=== PATIENT | female | born 2000 | race Hispanic/Latino ===

== ENCOUNTER 2020-11-14 02:15 | Emergency (ER) | payer MEDICAID ==
[~2020-11-14] VITALS: Ht 149.9 cm; Wt 68.0 kg
[2020-11-14 02:26] VITALS: BP 112/59
[2020-11-14 03:01] LABS: APPEARANCE,URINE Clear (CLEAR); BILIRUBIN,URINE Negative (NEGATIVE); COLOR,URINE Yellow (YELLOW); GLUCOSE, URINE (UA) Negative (NEGATIVE); KETONES,URINE Negative (NEGATIVE); LEUKOCYTE ESTERASE ,URINE Negative (NEGATIVE); NITRATE,URINE Negative (NEGATIVE); OCCULT BLOOD,URINE Small (NEGATIVE); PH,URINE 7.5 (5.0-8.0); PROTEIN,URINE Negative (NEGATIVE); UROBILINOGEN,URINE 0.2 mg/dL (0.2-1.0)
[2020-11-14 03:16] LABS: BASOPHILS % (AUTO) 0.7 % (0.0-5.0); EOSINOPHILS % (AUTO) 1.8 % (0.0-8.0); HEMATOCRIT 38.6 % (36-48); LYMPHOCYTES % (AUTO) 29.6 % (21.0-51.0); MEAN CORPUSCULAR HEMOGLOBIN 30.6 pg (27.0-33.0); MEAN CORPUSCULAR HGB CONC 34.2 g/dL (32.0-36.0); MEAN CORPUSCULAR VOLUME 89.6 fL (80-100); MONOCYTES % (AUTO) 4.6 % (3.0-13.0); NEUTROPHILS % (AUTO) 62.7 % (40.0-77.0); PLATELET COUNT (AUTO) 246 K/uL (130-400); RED BLOOD CELL COUNT(AUTO) 4.31 MIL/uL (4.00-5.50); RED CELL DISTRIBUTION WIDTH 12.8 % (11.0-15.5); WHITE BLOOD COUNT (AUTO) 7.2 K/uL (4.8-10.8)
[2020-11-14 03:25] LABS: CREATININE 1.1 mg/dL (0.5-1.5); POTASSIUM 4.3 mmol/L (3.5-5.1)
[2020-11-14 03:30] LABS: BACTERIA,URINE None Seen /HPF (None Seen); RBC,URINE 0-1 /HPF (0-1); SQUAMOUS EPITHELIAL CELL,UR Few /HPF (0-2); WBC,URINE None Seen /HPF (0-1)
[2020-11-14 03:35] LABS: ALBUMIN 3.3 g/dL (3.5-5.0); BILIRUBIN,TOTAL 0.2 mg/dL (0.2-1.0); TOTAL PROTEIN, SERUM 7.4 g/dL (6.0-8.3)
[2020-11-14 03:50] VITALS: BP 115/59
[2020-11-14] MEDS ORDERED: MAGN296S76 PO (04:22)
[2020-11-14] MEDS ORDERED: [UNRECOGNIZED DRUG - CODE] PO (04:22)
[2020-11-14] MEDS ORDERED: DICYCLOMINE 20MG (10MG/ML) AMP IM STA (04:23)
[2020-11-14] MEDS ORDERED: MAGNESIUM CITRATE 296 ML SOLUTION PO ONE (04:30)
[2020-11-14] MEDS ORDERED: ESCI5TAB16 PO (04:30)
[2020-11-14] MEDS ORDERED: OMEP20CA12 PO (04:30)
[2020-11-14] MEDS ORDERED: DICYCLOMINE 20MG (10MG/ML) AMP IM ONE (04:34)
[2020-11-14] MEDS ORDERED: MAGNESIUM CITRATE 296 ML SOLUTION ONE (04:34)
== END 2020-11-14 04:48 | disposition home or self-care (01) ==
LOC: EDH 02:15
DX: K59.00 Constipation, unspecified (principal); E03.9 Hypothyroidism, unspecified; E66.9 Obesity, unspecified; J45.909 Unspecified asthma, uncomplicated; Z68.30 Body mass index [BMI] 30.0-30.9, adult
CPT/HCPCS: 36415; 74018; 80053; 81001; 83690; 84702; 85025; 96372; 99284; J0500

== ENCOUNTER 2020-12-03 09:19 | Emergency (ER) | payer MEDICAID ==
[~2020-12-03] VITALS: Ht 149.9 cm; Wt 71.7 kg
[~2020-12-03 09:19] MED LIST: ESCI5TAB16 PO; MAGN296S76 PO; OMEP20CA12 PO; [UNRECOGNIZED DRUG - CODE] PO
[2020-12-03 11:35] LABS: BASOPHILS % (AUTO) 0.7 % (0.0-5.0); EOSINOPHILS % (AUTO) 1.7 % (0.0-8.0); HEMATOCRIT 41.1 % (36-48); LYMPHOCYTES % (AUTO) 25.2 % (21.0-51.0); MEAN CORPUSCULAR HGB CONC 33.8 g/dL (32.0-36.0); MEAN CORPUSCULAR VOLUME 91.5 fL (80-100); MONOCYTES % (AUTO) 4.8 % (3.0-13.0); PLATELET COUNT (AUTO) 204 K/uL (130-400); RED BLOOD CELL COUNT(AUTO) 4.49 MIL/uL (4.00-5.50); RED CELL DISTRIBUTION WIDTH 13.3 % (11.0-15.5); WHITE BLOOD COUNT (AUTO) 5.4 K/uL (4.8-10.8)
[2020-12-03 11:46] LABS: CREATININE 0.9 mg/dL (0.5-1.5); POTASSIUM 3.8 mmol/L (3.5-5.1)
[2020-12-03 11:51] LABS: APPEARANCE,URINE Clear (CLEAR); BILIRUBIN,URINE Negative (NEGATIVE); COLOR,URINE Yellow (YELLOW); GLUCOSE, URINE (UA) Negative (NEGATIVE); KETONES,URINE Negative (NEGATIVE); LEUKOCYTE ESTERASE ,URINE Negative (NEGATIVE); NITRATE,URINE Negative (NEGATIVE); OCCULT BLOOD,URINE Negative (NEGATIVE); PH,URINE 7.5 (5.0-8.0); PROTEIN,URINE Negative (NEGATIVE); UROBILINOGEN,URINE 0.2 mg/dL (0.2-1.0)
[2020-12-03 11:55] LABS: HCG,QUAL RESULT NEGATIVE (NEGATIVE)
[2020-12-03 11:58] LABS: ALBUMIN 3.5 g/dL (3.5-5.0); BILIRUBIN,TOTAL 0.4 mg/dL (0.2-1.0); MAGNESIUM 2.4 mg/dL (1.80-2.40); THYROID STIMULATING HORMONE 7.46 uIU/mL (0.36-3.74); TOTAL PROTEIN, SERUM 7.3 g/dL (6.0-8.3)
[2020-12-03 12:11] LABS: B-TYPE NATRIURETIC PEPTIDE < 5 pg/mL (0-100)
[2020-12-03 12:39] VITALS: BP 110/61
== END 2020-12-03 13:56 | disposition home or self-care (01) ==
LOC: EDH 09:19
DX: R07.89 Other chest pain (principal); I25.10 Atherosclerotic heart disease of native coronary artery without angina pectoris; E03.9 Hypothyroidism, unspecified; E66.9 Obesity, unspecified; J45.909 Unspecified asthma, uncomplicated; Q90.9 Down syndrome, unspecified; Z68.30 Body mass index [BMI] 30.0-30.9, adult; Z79.899 Other long term (current) drug therapy
CPT/HCPCS: 36415; 71045; 80053; 81003; 81025; 82550; 83690; 83735; 83880; 84443; 84484; 85025; 93005

== ENCOUNTER 2024-05-03 18:55 | Emergency (ER) | payer MEDICAID ==
[~2024-05-03] VITALS: Ht 149.9 cm; Wt 59.6 kg
[~2024-05-03 18:55] MED LIST changes: +MAGN296S73 PO; -MAGN296S76 PO; +[UNRECOGNIZED DRUG - CODE] PO; -[UNRECOGNIZED DRUG - CODE] PO
[2024-05-03 18:56] VITALS: BP 113/6; PULSE 98; RESP 18; TEMP 96.7
[2024-05-03 20:54] LABS: BASOPHILS # (AUTO) 0.05 K/uL (0.00-0.20); BASOPHILS % (AUTO) 0.6 % (0.0-5.0); EOSINOPHILS # (AUTO) 0.09 K/uL (0.00-0.70); EOSINOPHILS % (AUTO) 1.1 % (0.0-8.0); HEMATOCRIT 44.6 % (36-48); IMMATURE GRANULOCYTE ABSOLUTE 0.03 K/uL (0-1); LYMPHOCYTES % (AUTO) 13.2 % (21.0-51.0); MEAN CORPUSCULAR HEMOGLOBIN 31.7 pg (27.0-33.0); MEAN CORPUSCULAR HGB CONC 33.6 g/dL (32.0-36.0); MEAN CORPUSCULAR VOLUME 94.3 fL (79-99); MONOCYTES # (AUTO) 0.3 K/uL (0.1-1.0); MONOCYTES % (AUTO) 3.5 % (3.0-13.0); NEUTROPHILS # (AUTO) 6.4 K/uL (1.8-7.7); NEUTROPHILS % (AUTO) 81.2 % (40.0-77.0); PLATELET COUNT (AUTO) 216 K/uL (130-400); RED BLOOD CELL COUNT(AUTO) 4.73 MIL/uL (4.00-5.50); WHITE BLOOD COUNT (AUTO) 7.9 K/uL (4.8-10.8)
[2024-05-03 21:02] LABS: CREATININE 0.9 mg/dL (0.5-1.0); POTASSIUM 3.6 mmol/L (3.5-5.1)
--- NOTE | 2024-05-03 21:50 | HMCIMG ---
CHEST 1VW HISTORY: Cough COMPARISON: 12/03/2020 FINDINGS: A frontal projection of the chest was obtained. Mild bilateral pulmonary infiltrates are seen may be related to mild pulmonary vascular congestion with possible superimposed pneumonitis. The heart is normal in size. Gastric distention is seen. No evidence of aortic calcification is seen. IMPRESSION: 1. Mild bilateral pulmonary infiltrates are seen may be related to mild pulmonary vascular congestion with possible superimposed pneumonitis.
--- NOTE | 2024-05-04 00:45 | ERN ---
ED Note History of Present Illness Stated Complaint: NO APPETITE, THROAT PAIN Chief Complaint: Other Problems Time Seen by MD: 19:31 Time Seen by Midlevel: 19:31 Dictation: The patient is a 23-year-old female with a history of Down syndrome, hypothyroi dism who presents to the emergency department with mother with complaints of low appetite, onset one month ago. Mother reports that patient has been very picky about what she eats and would only eat protein shakes and soft soups. Reports she has been seen by her doctor and they had checked her thyroid and told her she had hypothyroidism and was placed on medication. Reports patient has lost about33 lb in the last month. Reports sore throat onset today. Denies any nausea, vomiting, fevers, diarrhea patient denies any abdominal pain. Allergies: Coded Allergies: No Known Drug Allergies (Unverified Allergy, Unknown, 11/14/20) Home Meds Active Scripts Psyllium Husk/Sweetleaf (Konsyl Daily Fiber Powder Pkt) 3.5 Gm Powd.pack, 3.5 GM PO BID, #60 PACKET 2 Refills Prov:NELI CAMARENA MD 11/14/20 Magnesium Citrate (Magnesium Citrate) 296 Ml Solution, 296 ML PO TID for constipation, #300 ML 2 Refills Prov:NELI CAMARENA MD 11/14/20 Reported Medications Escitalopram Oxalate (Escitalopram Oxalate) 5 Mg Tablet, 5 MG PO DAILY, TAB 11/14/20 Omeprazole (Omeprazole) 20 Mg Capsule.dr, 20 MG PO DAILY, CAP 11/14/20 Past Medical History Past Medical History: Asthma, Hypothyroid, Other Additional Past Medical Hx: DOWN SYNDROME, THYROID Surgical History: Tonsillectomy Surgical History Other: BMT Family History: HTN Social History: Negative, Lives with family RN Note Reviewed/Agreed w/PFSH: Yes Review of System Dictation Constitutional: Negative for fever,chills, and weight loss Eyes: Negative for injury, pain,redness, and discharge ENT: Negative for injury,pain or swelling positive for sore throat Cardiovascular: Negative for chest pain, palpitations, and edema Respiratory: Negative for shortness of breath, cough, and wheezing, Abdomen/GI: Negative for abdominal pain, nausea, vomiting, diarrhea, and constipation Back: Negative for injury and pain : Negative for injury, bleeding and discharge MS/Extremity: Negative for injury and deformity Skin: Negative for rash, and discoloration Neuro: Negative for headache, weakness, numbness, tingling, and seizure Psych: Negative for suicide ideation, homicidal ideation, and hallucinations Initial Vital Sign VS Vital Signs Date Time Temp Pulse Resp B/P (MAP) Pulse Ox O2 Delivery O2 Flow Rate FiO2 05/03/24 18:56 96.6 98 18 113/6 100 Room Air Physical Exam Dictation Vital Signs reviewed General Appearance: Alert, oriented x 1, no acute distress, well developed, nourished. Head and Face: non-traumatic. Eyes: PERRL, pink conjunctivas, eyelid no trauma, anterior chamber with arcus senilis. Ears: Pinnas intact and no signs of trauma or erythema ear canals clear and no discharge TM no erythema Nose: No discharge, no bleeding. Oropharynx: Mouth normal, tongue pink. pharynx clear,no erythema, tonsils no exudates, no abscesses noted, mucous membrane moist Neck: Supple, non-tender, no thyromegaly, no masses, no JVD, no bruits Breast:Deferred Chest:No tenderness, no crepitus, no paradoxical movement, no retractions Lungs:Clear, well-ventilated, symmetric, no rales, no wheezing, no rhonchi, no stridor, good breath sounds bilaterally Heart: Regular rate, regular rhythm, no murmur, no gallops Vascular: no peripheral edema, Abdomen: Soft, positive bowel sounds, nondistended, no guarding, nontender, no rebound, no masses no hepatomegaly, no splenomegaly, no Perez's sign, no hernias. Rectal: Deferred Genital: Deferred Neurological: Normal speech, motor function intact, sensory function intact Musculoskeletal: Neck nontender, full range of motion, back nontender, full r dara of motion, Extremities: nontender, full range of motion Skin: Color pink, dry, no turgor, no rash, no lacerations, no abrasions, no contusions. Lymphatic: Deferred Results (Laboratory/Radiology) Laboratory/Radiology Laboratory Tests Test 05/03/24 20:43 White Blood Count 7.9 K/uL (4.8-10.8) Red Blood Count 4.73 MIL/uL (4.00-5.50) Hemoglobin 15.0 g/dL (12.0-16.0) Hematocrit 44.6 % (36-48) Mean Corpuscular Volume 94.3 fL (79-99) Mean Corpuscular Hemoglobin 31.7 pg (27.0-33.0) Mean Corpuscular Hemoglobin Concent 33.6 g/dL (32.0-36.0) Red Cell Distribution Width 14.0 % (11.0-15.5) Platelet Count 216 K/uL (130-400) Mean Platelet Volume 10.4 fL (7.5-10.5) Immature Granulocyte % (Auto) 0.4 % (0-1) Neutrophils (%) (Auto) 81.2 % (40.0-77.0) H Lymphocytes (%) (Auto) 13.2 % (21.0-51.0) L Monocytes (%) (Auto) 3.5 % (3.0-13.0) Eosinophils (%) (Auto) 1.1 % (0.0-8.0) Basophils (%) (Auto) 0.6 % (0.0-5.0) Neutrophils # (Auto) 6.4 K/uL (1.8-7.7) Lymphocytes # (Auto) 1.0 K/uL (1.0-4.8) Monocytes # (Auto) 0.3 K/uL (0.1-1.0) Eosinophils # (Auto) 0.09 K/uL (0.00-0.70) Basophils # (Auto) 0.05 K/uL (0.00-0.20) Absolute Immature Granulocyte (auto 0.03 K/uL (0-1) Nucleated Red Blood Cells 0.0 % (0.0-0.19) Sodium Level 138 mmol/L (136-145) Potassium Level 3.6 mmol/L (3.5-5.1) Chloride Level 103 mmol/L (101-111) Carbon Dioxide Level 31 mmol/L (21-32) Blood Urea Nitrogen 7 mg/dL (7-18) Creatinine 0.9 mg/dL (0.5-1.0) Glomerular Filtration Rate Calc 92 mL/min (>90) Random Glucose 97 mg/dL (70-105) Total Calcium 8.9 mg/dL (8.5-10.1) Lipase 20 U/L (16-77) Serum Test, Qualitative NEGATIVE (NEGATIVE) REASON: cough ORDERING PHYSICIAN: DEANA TREJO PROCEDURE: CXR1VW - CHEST 1VW CHEST 1VW HISTORY: Cough COMPARISON: 12/03/2020 FINDINGS: A frontal projection of the chest was obtained. Mild bilateral pulmonary infiltrates are seen may be related to mild pulmonary vascular congestion with possible superimposed pneumonitis. The heart is normal in size. Gastric distention is seen. No evidence of aortic calcification is seen. IMPRESSION: 1. Mild bilateral pulmonary infiltrates are seen may be related to mild pulmonary vascular congestion with possible superimposed pneumonitis. Labs Reviewed?: Yes ED Course ED Course Orders Procedure Category Date Status Time Cbc With Differential LAB 05/03/24 Complete 20:31 Urinalysis Profile LAB 05/03/24 Logged 20:31 Lipase LAB 05/03/24 Complete 20:31 Basic Metabolic Panel LAB 05/03/24 Complete 20:31 Testing, LAB 05/03/24 Complete Serum Hcg 20:31 Rapid (Group A Strep) LAB 05/03/24 Logged 20:31 Influenza Type A & B, LAB 05/03/24 Logged Rapid 20:31 Chest 1vw RAD 05/03/24 Resulted 20:31 Vital Signs Date Time Temp Pulse Resp B/P (MAP) Pulse Ox O2 Delivery O2 Flow Rate FiO2 05/03/24 18:56 96.6 98 18 113/6 100 Room Air Medical Decision Making MDM The patient is a 23-year-old female with a history of Down syndrome, hypothyroidism who presents to the emergency department with mother with compla ints of low appetite, onset one month ago. Mother reports that patient has been very picky about what she eats and would only eat protein shakes and soft soups. Reports she has been seen by her doctor and they had checked her thyroid and told her she had hypothyroidism and was placed on medication. Patient also being referred to Gastroenterology for this problem but is pending appointment. Reports patient has lost about33 lb in the last month. Reports sore throat onset today. Denies any nausea, vomiting, fevers, diarrhea patient denies any abdominal pain. Differential diagnosis: Strep throat, upper respiratory infection, dehydration, electrolyte imbalance Patient's mother reported that she wanted to leave ER and follow up with her primary doctor in the morning for swabs. And rest of the results. Informed mother that we were pending a strep swab and urinalysis and advised against leaving without having full results. Mother reports she did not want away anymore Risks and benefits discussed with patient mother eloped from ER. DX & DISP Disposition: AMA Departure Condition: Stable Referrals: JUN EDGE (PCP) I have reviewed the case, and I agree with, Diagnosis and Plan DEANA TREJO May 04, 2024 00:45
--- NOTE | 2024-05-04 00:50 | NUR ---
PATIENT CALLED FOR CARE AT THIS TIME, NO ANSWER./TIFFANIE
--- NOTE | 2024-05-04 01:00 | NUR ---
DEANA RIZVI INFORMED THAT PATIENT VOICED TO HER THAT SHE IS LEAVING AND WILL FOLLOW UP WITH HER PRIMARY IN THE MORNING./TIFFANIE
== END 2024-05-04 02:16 | disposition left against medical advice (07) ==
LOC: EDH 18:55
DX: R63.0 Anorexia (principal); J02.9 Acute pharyngitis, unspecified; E03.9 Hypothyroidism, unspecified; J45.909 Unspecified asthma, uncomplicated; Q90.9 Down syndrome, unspecified; Z79.899 Other long term (current) drug therapy; Z90.89 Acquired absence of other organs; Z94.81 Bone marrow transplant status
CPT/HCPCS: 36415; 71045; 80048; 83690; 84703; 85025; 99284

== ENCOUNTER → 2024-07-15 | Outpatient (CLI) | payer MEDICAID ==
--- NOTE | 2024-07-15 14:50 | NUR ---
MBSS COMPLETED (OUTPATIENT). Aspiration before the swallow with mixed textures followed by immediate body movements and head turning. Recommend pureed solid, thin liquids and pills crushed with pureed as tolerated. As per mother, patient with Down Syndrome. She reports a recent change during oral intake. Patient brings head down to left side and will take awhile to initiate the swallow. She will remain in that position a few seconds post swallow before raising head back up to accept new bite/sip. As per mother, one medication was increased in dose and no new medications have been prescribed. Mother will consult with MD on medication side effects. Mother also reports patient has been diagnosed with thyroid issues and that may be a contributing factor. Pt completed imaging exams on thyroid with pending results. RECOMMEND NEURO CONSULT TO FURTHER EVALUATE RECENT CHANGE IN MENTATION DURING ORAL INTAKE mildly affecting swallowing function. Compensatory strategies: 1. sit upright during oral intake 2. small bites/sips 3. slow oral intake 4. NO MIXED TEXTURES 5. extra dry swallows 6. minimize distractions during oral intake DIAGNOSTIC FINDINGS: Pt presented with mild oropharyngeal dysphagia characterized by decreased oral motor strength, ROM and coordination; decreased tongue base retraction; decreased hyo-laryngeal elevation/excursion and delayed pharyngeal response trigger evidenced by increased bolus time in oral cavity (patient required max concentration with minimal distractions to initiate the swallow and after the swallow she remained with her eyes closed with head down for a few seconds before lifting head up to accept new trial); decreased mandibular rotary motion during mastication (patient had to spit out fibrous part of fruit); severe tongue pumping; occasional premature spillage to valleculae with spillover to pyriform sinuses; residue post swallow in base of tongue, valleculae and pyriform sinuses cleared with extra dry swallows; resulting in aspiration before the swallow with mixed textures with body gestures and movement response. WOODWORKING BELT SANDER reviewed results and recommendations with patient and mother Luisana present at time of eval. WOODWORKING BELT SANDER educated patient/family on risks and consequences of aspiration. Speech therapy not warranted. All questions answered. Addendum: 07/15/[address] AMY WOODWARD Amended: Links added.
--- NOTE | 2024-07-15 16:40 | HMCIMG ---
MODIFIED BARIUM SWALLOW W CINE REASON: Dysphagia, unspecified, Feeding difficulties. COMPARISON: None TECHNIQUE: Modified barium swallow study was performed with referring speech therapist. FINDINGS: Please see procedure for by referring speech therapist. IMPRESSION: Modified barium swallow study.
== END | disposition home or self-care (01) ==
LOC: RAH 13:55
PROVIDERS: ATTEND Internal Medicine Gastroenterology
DX: R13.10 Dysphagia, unspecified (principal); R63.30 Feeding difficulties, unspecified
CPT/HCPCS: 74230; 92611

== ENCOUNTER 2024-08-31 19:21 | Emergency (ER) | payer MEDICAID ==
[~2024-08-31] VITALS: Ht 124.5 cm; Wt 49.4 kg
[2024-08-31] MEDS: LACTATED RINGERS 1000ML IV STA ×2 (19:43→23:50)
--- NOTE | 2024-08-31 19:45 | NUR ---
PATIENT RECIEVED APPROX 500 CC OF NS PRIOR TO ARRIVAL WITH [facility]./TIFFANIE
[2024-08-31 20:06] LABS: IMMATURE GRANULOCYTE ABSOLUTE 0.02 K/uL (0-1); NUCLEATED RED BLOOD CELLS 0.0 % (0.0-0.19); PLATELET COUNT (AUTO) 169 K/uL (130-400); RED BLOOD CELL COUNT(AUTO) 4.22 MIL/uL (4.00-5.50); RED CELL DISTRIBUTION WIDTH 13.7 % (11.0-15.5); WHITE BLOOD COUNT (AUTO) 5.6 K/uL (4.8-10.8)
[2024-08-31 20:15] LABS: CREATININE 1.0 mg/dL (0.5-1.0); GLOMERULAR FILTR. RATE CALC 81.0 mL/min (>90); GLUCOSE,RANDOM 101.0 mg/dL (70-105); SODIUM SERUM 149.0 mmol/L (136-145); UREA NITROGEN, BLOOD 14.0 mg/dL (7-18)
--- NOTE | 2024-08-31 20:22 | ERN ---
General Chief Complaint: Syncope Stated Complaint: SYNCOPE Time Seen by MD: 19:22 History of Present Illness Initial Comments Patient is a 23-year-old female with down syndrome who was shopping with her mother this morning when she dropped her protein shake and slumped over. Her mother caught her so that the patient did not hit the ground. Brought her here for further evaluation. While I was examining the patient she tilted her head to the left and her gaze deviated to the left and she did not respond to any of my questions or gentle prodding. I moved her head to the right and it just rested there with the no resistance and the patient again did not respond. After a brief moment the patient did seem to perk up and answer my questions and look at me when I talked to her. Patient's skin is pale but with a venous spidering. Patient's 1st set of vital signs showed a systolic blood pressure of 89. Timing/Duration: 1 hour Allergies: Coded Allergies: No Known Drug Allergies (Unverified Allergy, Unknown, 11/14/20) Home Meds Active Scripts Psyllium Husk/Sweetleaf (Konsyl Daily Fiber Powder Pkt) 3.5 Gm Powd.pack, 3.5 GM PO BID, #60 PACKET 2 Refills Prov:NELI CAMARENA MD 11/14/20 Magnesium Citrate (Magnesium Citrate) 296 Ml Solution, 296 ML PO TID for constipation, #300 ML 2 Refills Prov:NELI CAMARENA MD 11/14/20 Reported Medications Escitalopram Oxalate (Escitalopram Oxalate) 5 Mg Tablet, 5 MG PO DAILY, TAB 11/14/20 Omeprazole (Omeprazole) 20 Mg Capsule.dr, 20 MG PO DAILY, CAP 11/14/20 Past Medical History Past Medical History: Asthma, Hypothyroid, Other Medical History Other: DOWN SYNDROME, THYROID Past Surgical History: Tonsillectomy Surgical History Other: BMT Family History Family History: HTN Social History Social History: Negative, Lives with family ROS Dictation Unable to obtain a review of systems from the patient. Mother provided some information. Patient is afebrile no nausea no vomiting no diarrhea no shortness of breath no chest pain. Mainly patient is upset because she spilled her protein drink. Physical Exam General Appearance: (+) mild distress Orientation: (+) alert Eye: bilateral eye normal inspection, bilateral eye PERRL, bilateral eye EOMI Ear, Nose, Throat: (+) hearing grossly normal Neck: (+) normal inspection, (+) supple, (+) full range of motion Respiratory: (+) chest non-tender, (+) lungs clear Heart: (+) regular, (+) no gallop Vascular: (+) no edema Vascular Comment We will pulses were absent in all four extremities. Gastrointestinal: (+) soft Results Laboratory and Microbiology Lab and Micro Result Laboratory Tests Test 08/31/24 19:43 08/31/24 23:05 White Blood Count 5.6 K/uL (4.8-10.8) Red Blood Count 4.22 MIL/uL (4.00-5.50) Hemoglobin 13.3 g/dL (12.0-16.0) Hematocrit 39.8 % (36-48) Mean Corpuscular Volume 94.3 fL (79-99) Mean Corpuscular Hemoglobin 31.5 pg (27.0-33.0) Mean Corpuscular Hemoglobin Concent 33.4 g/dL (32.0-36.0) Red Cell Distribution Width 13.7 % (11.0-15.5) Platelet Count 169 K/uL (130-400) Mean Platelet Volume 11.0 fL (7.5-10.5) H Immature Granulocyte % (Auto) 0.4 % (0-1) Neutrophils (%) (Auto) 81.4 % (40.0-77.0) H Lymphocytes (%) (Auto) 14.0 % (21.0-51.0) L Monocytes (%) (Auto) 3.0 % (3.0-13.0) Eosinophils (%) (Auto) 0.7 % (0.0-8.0) Basophils (%) (Auto) 0.5 % (0.0-5.0) Neutrophils # (Auto) 4.6 K/uL (1.8-7.7) Lymphocytes # (Auto) 0.8 K/uL (1.0-4.8) L Monocytes # (Auto) 0.2 K/uL (0.1-1.0) Eosinophils # (Auto) 0.04 K/uL (0.00-0.70) Basophils # (Auto) 0.03 K/uL (0.00-0.20) Absolute Immature Granulocyte (auto 0.02 K/uL (0-1) Nucleated Red Blood Cells 0.0 % (0.0-0.19) Sodium Level 149 mmol/L (136-145) H Potassium Level 3.5 mmol/L (3.5-5.1) Chloride Level 111 mmol/L (101-111) Carbon Dioxide Level 22 mmol/L (21-32) Blood Urea Nitrogen 14 mg/dL (7-18) Creatinine 1.0 mg/dL (0.5-1.0) Glomerular Filtration Rate Calc 81 mL/min (>90) Random Glucose 101 mg/dL (70-105) Total Calcium 8.3 mg/dL (8.5-10.1) L Urine Color LIGHT-YELLOW (YELLOW) Urine Appearance CLEAR (CLEAR) Urine pH 6.0 (5.0-8.0) Urine Specific [place] 1.023 (1.001-1.031) Urine Protein 10 mg/dL (NEGATIVE) H Urine Glucose (UA) NEGATIVE mg/dL (NEGATIVE) Urine Ketones 150 mg/dL (NEGATIVE) H Urine Occult Blood NEGATIVE (NEGATIVE) Urine Nitrate NEGATIVE (NEGATIVE) Urine Bilirubin NEGATIVE mg/dL (NEGATIVE) Urine Urobilinogen 3 mg/dL (0.2-1.0) H Urine Leukocyte Esterase 25 Judy/uL (NEGATIVE) H Urine RBC 0-1 /HPF (0-1) Urine WBC 2-5 /HPF (0-1) H Urine Squamous Epithelial Cells FEW /HPF (0-2) Urine Bacteria FEW /HPF (None Seen) MDM Given the skin color changes and the lack of pulses and a assuming the patient is dehydrated I will start with a simple labs as well as a urine analysis and give her 2 L of food. Laboratory analysis comes back showing a normal white count but left shift. Chemistry analysis shows a mild hypernatremia but a normal chloride normal BUN normal creatinine. Urinalysis comes back with mild esterase activity no glucose positive ketones 150. While patient receiving her 3 L of fluid her blood pressure finally started to rise up to normal level and her blood pressure became normal. Once her 3 L is complete she can go home. ED Course Orders Procedure Category Date Status Time 12 Lead Ekg Tracing- EKG 08/31/24 Logged Technical 19:31 Basic Metabolic Panel LAB 08/31/24 Complete 19:31 Cbc With Differential LAB 08/31/24 Complete 19:31 Urinalysis Profile LAB 08/31/24 Complete 19:31 Lactated Ringers PHA 08/31/24 Complete 1000ml (Lactated 19:31 Ct Head/Brain W/O CT 08/31/24 Resulted Contrast 21:45 Ct Abdomen/Pelvis W/O CT 08/31/24 Taken Contrast 21:45 Lactated Ringers PHA 08/31/24 Complete 1000ml (Lactated 23:43 Current Medications Medications (Trade) Dose Ordered Sig/Chandni Route PRN Reason Start Time Stop Time Status Last Admin Dose Admin Lactated Ringer's (Lactated Ringers 1000ml) 1,000 ml BOLUS STAT IV 08/31/24 19:31 08/31/24 19:34 DC 08/31/24 19:43 Lactated Ringer's (Lactated Ringers 1000ml) 1,000 ml BOLUS STAT IV 08/31/24 23:43 08/31/24 23:45 DC 08/31/24 23:50 Vital Signs Date Time Temp Pulse Resp B/P (MAP) Pulse Ox O2 Delivery O2 Flow Rate FiO2 08/31/24 23:17 73 17 96/59 99 Room Air* 0 08/31/24 22:32 81 17 94/60 99 Room Air* 0 08/31/24 21:38 97.3 81 17 98/62 99 Room Air* 0 08/31/24 21:13 79 17 91/55 99 Room Air* 0 08/31/24 20:32 82 17 92/57 99 Room Air* 0 08/31/24 20:20 87 17 86/65 99 Room Air* 0 08/31/24 20:11 85 18 79/44 99 Room Air* 0 08/31/24 20:01 90 88/42 Room Air* 0 08/31/24 19:58 84 74/33 Room Air* 0 08/31/24 19:45 82 18 81/47 99 Room Air* 0 08/31/24 19:22 93 16 72/54 98 Room Air 0 DX & DISP Disposition: Discharge Departure Impression: Primary Impression: Dehydration determined by examination Additional Impression: Dehydration Condition: Stable Additional Instructions: All of the laboratory analysis confirms that araceli almanzar was severely dehydrated when she came to the emergency room and that is mainly why she was lightheaded. Her blood pressure is now normal with a her 3 L of fluid. If she becomes lightheaded again please bring her back to the emergency room. You estimate constipation a good laxative that is gentle is called BoazLY it is a powder that you can put into a drink and have her take it every night before she goes to bed. Regarding her needing to look to the left when she eats I recommend you keep the appointment that is already scheduled with her neurologist. Referrals: JUN EDGE (PCP) SUNDEEP KIM MD Aug 31, 2024 20:22
--- NOTE | 2024-08-31 21:34 | NUR ---
DR. KIM CONNECTED PATIENT TO NS FLUIDS THAT ARE AT BEDSIDE FROM EMS AT THIS TIME./TIFFANIE
--- NOTE | 2024-08-31 23:08 | NUR ---
PT AMBULATED TO BATHROOM WITH ASSISTANCE, PT DID NOT VOICE ANY DIZZINESS AT THIS TIME. URINE SAMPLE OBTAINED./TIFFANIE
[2024-08-31 23:12] LABS: ADD UA MICROSCOPIC YES; APPEARANCE,URINE CLEAR (CLEAR); GLUCOSE, URINE (UA) NEGATIVE (NEGATIVE); LEUKOCYTE ESTERASE ,URINE 25 Leu/uL (NEGATIVE); NITRATE,URINE NEGATIVE (NEGATIVE); OCCULT BLOOD,URINE NEGATIVE (NEGATIVE)
[2024-08-31 23:15] LABS: SQUAMOUS EPITHELIAL CELL,UR FEW /HPF (0-2)
--- NOTE | 2024-08-31 23:15 | HMCIMG ---
EXAM: Non-contrast CT examination of the Brain CLINICAL HISTORY: Weakness. TECHNIQUE: Thin collimated axial CT images of the brain were obtained, with sagittal and coronal reformatted images also submitted. CT scan done according to ALARA (As Low as Reasonably Achievable). CONTRAST USED: None. COMPARISON: None. FINDINGS: No acute intracranial abnormality is present. No acute cortical infarction, hemorrhage, mass, or mass effect. Prominent CSF space in the left cerebellopontine angle concerning an arachnoid cyst. No hydrocephalus or abnormal extra-axial fluid collections. The posterior fossa is unremarkable. The skull base and calvarium are intact. The included portions of the paranasal sinuses and mastoid air cells are clear. IMPRESSION: No acute intracranial abnormality is present. Prominent CSF space in the left cerebellopontine angle concerning an arachnoid cyst. Further evaluation with MRI of the brain is suggested. /[place]
--- NOTE | 2024-08-31 23:30 | NUR ---
PT TOLERATING SOLID FOOD AND LIQUIDS, NO NAUSEA OR VOMITING. PER MOTHER PATIENT IS LOOKING BACK TO BASE LINE./TIFFANIE
[2024-09-01 00:24] VITALS: BP 100/59; PULSE 70; RESP 17; TEMP 98.1; O2SAT 99
--- NOTE | 2024-09-01 00:26 | NUR ---
IV FLUIDS CURRENTLY INFUSING, ONCE COMPLETED PATIENT WILL BE READY FOR DISCHARGE PER ED MD./TIFFANIE
--- NOTE | 2024-09-01 06:40 | EKG ---
[facility] Test Date: 2024-08-31 Test Time: 19:34:55 Pat Name: PATRICIA POTTS Department: [facility] Room: Gender: F [employer] Set Up Operator: [id number] : [id number] Requested By: SUNDEEP KIM Order Number: [id number] Reading MD: Shruti Hardy Measurements Intervals [place] Rate: 82 P: 23 WI: 116 QRS: 30 QRSD: 68 T: -89 QT: 362 QTc: 424 Interpretive Statements Sinus rhythm Compared to ECG 12/03/2020 09:21:04 No significant changes Electronically Signed On 09-02-2024 14:12:44 CDT by Shruti Hardy Please click the below link to view image of tracing.
== END 2024-09-01 01:17 | disposition home or self-care (01) ==
LOC: EDH 19:21
DX: E86.0 Dehydration (principal); J45.909 Unspecified asthma, uncomplicated; E03.9 Hypothyroidism, unspecified; Z79.899 Other long term (current) drug therapy; Z90.89 Acquired absence of other organs; Z94.81 Bone marrow transplant status
CPT/HCPCS: 99284; 70450; 96360; 96361; 80048; 85025; 81001; 36415; 74176; 93005; J7120 ×2

== ENCOUNTER 2024-09-08 23:04 | Emergency (ER) | payer MEDICAID ==
[~2024-09-08] VITALS: Ht 124.5 cm; Wt 46.0 kg
[2024-09-08 23:31] LABS: IMMATURE GRANULOCYTE ABSOLUTE 0.03 K/uL (0-1); NUCLEATED RED BLOOD CELLS 0.0 % (0.0-0.19); PLATELET COUNT (AUTO) 181 K/uL (130-400); RED BLOOD CELL COUNT(AUTO) 4.06 MIL/uL (4.00-5.50); RED CELL DISTRIBUTION WIDTH 14.2 % (11.0-15.5); WHITE BLOOD COUNT (AUTO) 5.1 K/uL (4.8-10.8)
[2024-09-08 23:42] LABS: CREATININE 0.9 mg/dL (0.5-1.0); GLOMERULAR FILTR. RATE CALC 92.0 mL/min (>90); GLUCOSE,RANDOM 82.0 mg/dL (70-105); SODIUM SERUM 142.0 mmol/L (136-145); UREA NITROGEN, BLOOD 11.0 mg/dL (7-18)
--- NOTE | 2024-09-09 00:57 | HMCIMG ---
EXAM: CR Abdomen, 1 view. CLINICAL HISTORY: Constipation. COMPARISON: CT abdomen and pelvis dated 08/31/2024. FINDINGS: Nonobstructed nonspecific bowel gas pattern. A component of moderate constipation is present in the colon. Questionable retained GI contrast in the descending colon, sigmoid colon, and rectum. No free air is evident. No abnormal calcification. No aggressive appearing osseous lesion. IMPRESSION: No acute process. A component of moderate constipation is present in the colon. Questionable retained GI contrast in the descending colon, sigmoid colon, and rectum. No gross interval changes compared with the prior CT dated 08/31/2024. /[place]
[2024-09-09 01:35] LABS: APPEARANCE,URINE CLOUDY (CLEAR); GLUCOSE, URINE (UA) NEGATIVE (NEGATIVE); LEUKOCYTE ESTERASE ,URINE 250 Leu/uL (NEGATIVE); NITRATE,URINE NEGATIVE (NEGATIVE); OCCULT BLOOD,URINE NEGATIVE (NEGATIVE)
[2024-09-09 01:43] LABS: SQUAMOUS EPITHELIAL CELL,UR MOD /HPF (0-2)
[2024-09-09] MEDS ORDERED: CEPH500T PO (02:02)
--- NOTE | 2024-09-09 02:02 | ERN ---
General Chief Complaint: Dehydration Stated Complaint: DEHYDRATION Time Seen by : 23:08 Time Seen by Midlevel: 23:08 Source: patient History of Present Illness Initial Comments 23-year-old female who presents to the emergency department with mother by EMS. Initially mother stated patient was having seizure-like activity however stated that it appeared like patient was choking patient was alert, and awake during the event. The patient was eating scrambled eggs when this occurred. Mother told EMS that patient has not been eating or drinking for the past few weeks. Mother states last bowel movement was two days ago. During conversation with mother she states that patient has been eating and drinking but takes a long time. Patient normally can not be disturbed or distracted during eating, which mother did today and thinks that led to the possible choking that resolved. PMHx down syndrome, gastritis Allergies: Coded Allergies: No Known Drug Allergies (Unverified Allergy, Unknown, 11/14/20) Home Meds Active Scripts Polyethylene Glycol 3350 (Miralax) 17 Gram Powd.pack, 17 GM PO DAILY for constipation, #7 PACKET 0 Refills Prov:JEFF BRINK 09/09/24 Cefdinir (Cefdinir) 250 Mg/5 Ml Susp.recon, 6.4 ML PO BID for 7 Days, #90 ML 0 Refills Prov:JEFF BRINK 09/09/24 Psyllium Husk/Sweetleaf (Konsyl Daily Fiber Powder Pkt) 3.5 Gm Powd.pack, 3.5 GM PO BID, #60 PACKET 2 Refills Prov:NELI CAMARENA MD 11/14/20 Magnesium Citrate (Magnesium Citrate) 296 Ml Solution, 296 ML PO TID for constipation, #300 ML 2 Refills Prov:NELI CAMARENA MD 11/14/20 Reported Medications Escitalopram Oxalate (Escitalopram Oxalate) 5 Mg Tablet, 5 MG PO DAILY, TAB 11/14/20 Omeprazole (Omeprazole) 20 Mg Capsule.dr, 20 MG PO DAILY, CAP 11/14/20 Discontinued Scripts Cephalexin (Cephalexin) 500 Mg Tablet, 1 TAB PO BID for 7 Days, #14 TAB 0 Refills Prov:JEFF BRINK 09/09/24 Past Medical History Past Medical History: No Pertinent History Medical History Other: DOWN SYNDROME, THYROID, GASTRITIS Past Surgical History: None Surgical History Other: BMT Family History Family History: HTN Social History Social History: Negative, Lives with family ROS Dictation Constitutional: Negative for fever,chills, and weight loss Eyes: Negative for injury, pain,redness, and discharge ENT: Negative for injury,pain or swelling Cardiovascular: Negative for chest pain, palpitations, and edema Respiratory: Negative for shortness of breath, cough, and wheezing, Abdomen/GI: Negative for abdominal pain, nausea, vomiting, diarrhea, and constipation Back: Negative for injury and pain : Negative for painful urination, bleeding or discharge MS/Extremity: Negative for injury and deformity Skin: Negative for rash, and discoloration Neuro: Negative for headache, weakness, numbness, tingling, and seizure Psych: Negative for suicide ideation, homicidal ideation, and hallucinations Physical Exam Physical Exam Dictation General: awake, alert, no acute distress Head/Face: Normocephalic, atraumatic Eyes: PERRL, EOMI, normal conjunctiva ENT: oral cavity clear, oral mucosa moist Neck: Supple, normal range of motion Cardiovascular: RRR, normal S1/S2 Respiratory: CTAB, no respiratory distress Abdomen: Soft, non-tender, non-distended, no guarding or rebound. Skin: Warm, dry, normal turgor, no rash MS/Extremity: Pulses equal, no cyanosis, neurovascular intact, FROM Neuro: At baseline, no neurological deficits, down syndrome, normal gait Psych: Normal behavior, mood, and affect normal Results Laboratory and Microbiology Lab and Micro Result Laboratory Tests Test 09/08/24 23:24 09/09/24 01:25 White Blood Count 5.1 K/uL (4.8-10.8) Red Blood Count 4.06 MIL/uL (4.00-5.50) Hemoglobin 13.0 g/dL (12.0-16.0) Hematocrit 38.2 % (36-48) Mean Corpuscular Volume 94.1 fL (79-99) Mean Corpuscular Hemoglobin 32.0 pg (27.0-33.0) Mean Corpuscular Hemoglobin Concent 34.0 g/dL (32.0-36.0) Red Cell Distribution Width 14.2 % (11.0-15.5) Platelet Count 181 K/uL (130-400) Mean Platelet Volume 10.8 fL (7.5-10.5) H Immature Granulocyte % (Auto) 0.6 % (0-1) Neutrophils (%) (Auto) 75.0 % (40.0-77.0) Lymphocytes (%) (Auto) 19.3 % (21.0-51.0) L Monocytes (%) (Auto) 3.3 % (3.0-13.0) Eosinophils (%) (Auto) 1.2 % (0.0-8.0) Basophils (%) (Auto) 0.6 % (0.0-5.0) Neutrophils # (Auto) 3.8 K/uL (1.8-7.7) Lymphocytes # (Auto) 1.0 K/uL (1.0-4.8) Monocytes # (Auto) 0.2 K/uL (0.1-1.0) Eosinophils # (Auto) 0.06 K/uL (0.00-0.70) Basophils # (Auto) 0.03 K/uL (0.00-0.20) Absolute Immature Granulocyte (auto 0.03 K/uL (0-1) Nucleated Red Blood Cells 0.0 % (0.0-0.19) Sodium Level 142 mmol/L (136-145) Potassium Level 3.6 mmol/L (3.5-5.1) Chloride Level 104 mmol/L (101-111) Carbon Dioxide Level 20 mmol/L (21-32) L Blood Urea Nitrogen 11 mg/dL (7-18) Creatinine 0.9 mg/dL (0.5-1.0) Glomerular Filtration Rate Calc 92 mL/min (>90) Random Glucose 82 mg/dL (70-105) Total Calcium 9.0 mg/dL (8.5-10.1) Urine Color YELLOW (YELLOW) Urine Appearance CLOUDY (CLEAR) H Urine pH 6.0 (5.0-8.0) Urine Specific [place] 1.027 (1.001-1.031) Urine Protein 30 mg/dL (NEGATIVE) H Urine Glucose (UA) NEGATIVE mg/dL (NEGATIVE) Urine Ketones 150 mg/dL (NEGATIVE) H Urine Occult Blood NEGATIVE (NEGATIVE) Urine Nitrate NEGATIVE (NEGATIVE) Urine Bilirubin 0.5 mg/dL (NEGATIVE) H Urine Urobilinogen 3 mg/dL (0.2-1.0) H Urine Leukocyte Esterase 250 Judy/uL (NEGATIVE) H Urine RBC 2-5 /HPF (0-1) H Urine WBC 11-25 /HPF (0-1) H Urine Squamous Epithelial Cells MOD /HPF (0-2) Urine Bacteria MOD /HPF (None Seen) Labs Reviewed?: Yes EKG/XRAY/US/CT/MRI X-RAY Comment REASON: constipation ORDERING PHYSICIAN: JEFF BRINK PROCEDURE: ABD 1VW - ABD 1VW EXAM: CR Abdomen, 1 view. CLINICAL HISTORY: Constipation. COMPARISON: CT abdomen and pelvis dated 08/31/2024. FINDINGS: Nonobstructed nonspecific bowel gas pattern. A component of moderate constipation is present in the colon. Questionable retained GI contrast in the descending colon, sigmoid colon, and rectum. No free air is evident. No abnormal calcification. No aggressive appearing osseous lesion. IMPRESSION: No acute process. A component of moderate constipation is present in the colon. Questionable retained GI contrast in the descending colon, sigmoid colon, and rectum. No gross interval changes compared with the prior CT dated 08/31/2024. /[place] DICTATED BY: DEBBIE WILSON Jr., MD DATE: 09/09/24 0155 [facility] MDM: Differential diagnosis: Constipation, UTI, dehydration Rationale: 23-year-old female who presents to the emergency department with mother by EMS. Initially mother stated patient was having seizure-like activity however stated that it appeared like patient was choking patient was alert, and awake during the event. The patient was eating scrambled eggs when this occurred. Mother told EMS that patient has not been eating or drinking for the past few weeks. Mother states last bowel movement was two days ago. During conversation with mother she states that patient has been eating and drinking but takes a long time. Patient normally can not be disturbed or distracted during eating, which mother did today and thinks that led to the possible choking that resolved. PMHx down syndrome, gastritis Labs obtained CBC and chemistry within normal limits. UA indicates a urinary tract infection with 250 leukocyte esterase, 11-25 WBCs. Abdominal x-ray indicates moderate constipation. Patient received Rocephin, lactulose, and Fleet enema in the ED. Patient had a successful bowel movement in the ED. MiraLax and antibiotics prescribed for outpatient treatment. Mother was educ ated on findings and diagnosis. Advised to follow up with PCP. Return to the emergency department if any worsening symptoms. Mother verbalized understanding. Patient stable for discharge. There are no social concerns with this patient. I independently interpreted the test that were performed, results were reviewed by me and considered findings on radiology if ordered. Medical management and examination interpretation discussions were had by me with other qualified healthcare professionals as indicated for the patient's care. ED Course Orders Procedure Category Date Status Time Cbc With Differential LAB 09/08/24 Complete 23:09 Basic Metabolic Panel LAB 09/08/24 Complete 23:09 Urinalysis LAB 09/08/24 Complete W/Microscopic 23:17 Abd 1vw RAD 09/08/24 Resulted 23:17 Culture Urine REBA 09/09/24 In Process 01:36 Lactulose 20 Gm/30 Ml PHA 09/09/24 Complete Udcup (Constulose 02:00 *Nursing CPOE 09/09/24 Transmitted Communication: 01:53 Ceftriaxone 1g Vial PHA 09/09/24 Complete (Rocephine 1g Inj) 02:00 Current Medications Medications (Trade) Dose Ordered Sig/Chandni Route PRN Reason Start Time Stop Time Status Last Admin Dose Admin Ceftriaxone Sodium (ROCEphine 1G INJ) 1 gm ONCE ONCE IVPB 09/09/24 02:00 09/09/24 02:01 DC 09/09/24 02:05 Lactulose (Constulose 20gm/ 30ml Udcup) 20 gm ONCE ONCE PO 09/09/24 02:00 09/09/24 02:01 DC 09/09/24 02:05 Vital Signs Date Time Temp Pulse Resp B/P (MAP) Pulse Ox O2 Delivery O2 Flow Rate FiO2 09/09/24 02:45 98.2 77 18 92/59 100 Room Air* 0 21 09/09/24 00:10 72 18 85/41 100 Room Air* 0 21 09/08/24 23:06 97.2 79 19 89/58 100 Room Air 0 DX & DISP Disposition: Discharge Departure Impression: Primary Impression: UTI (urinary tract infection) Additional Impression: Constipation Condition: Stable Scripts Polyethylene Glycol 3350 (Miralax) 17 Gram Powd.pack 17 GM PO DAILY for constipation, #7 PACKET 0 Refills Prov: JEFF BRINK 09/09/24 Cefdinir (Cefdinir) 250 Mg/5 Ml Susp.recon 6.4 ML PO BID for 7 Days, #90 ML 0 Refills Prov: JEFF BRINK 09/09/24 Additional Instructions: Discharge home. Rest. Follow up with primary care DrBharat in 24 hours. Return to the ER for any acute changes or worsening symptoms. If any medications were prescribed take as directed. Okay to continue home medications unless otherwise discussed during your visit in the emergency room today. Patient was also advised to follow-up with primary care physician in 1 to 2 days for continued monitoring. Referrals: JUN EDGE (PCP) I performed the substantive portion of the visit. I have reviewed and personally made and approve the management plan that is documented in the notes by myself or the MORELIA. I acknowledge full responsibility for the patient's management plan. JEFF BRINK Sep 09, 2024 02:02
[2024-09-09] MEDS: LACTULOSE 20 GM/30 ML UDCUP PO ONE (02:05)
--- NOTE | 2024-09-09 02:17 | NUR ---
PATIENT GIVEN FLEETS EMEMA, TOLERATED WELL
[2024-09-09 02:45] VITALS: BP 92/59; PULSE 77; RESP 18; TEMP 98.2; O2SAT 100
[2024-09-09] MEDS ORDERED: POLY17PO4 PO (02:48)
[2024-09-09] MEDS ORDERED: CEFD250S3 PO (02:48)
== END 2024-09-09 02:53 | disposition home or self-care (01) ==
LOC: EDH 23:04
DX: N39.0 Urinary tract infection, site not specified (principal); K59.00 Constipation, unspecified; Z79.899 Other long term (current) drug therapy; Z94.81 Bone marrow transplant status
CPT/HCPCS: 99284; 80048; 85025; 87086; 81001; 36415; 74018; 96374; J0696

== ENCOUNTER 2024-10-05 05:20 | Emergency (ER) | payer MEDICAID ==
[~2024-10-05] VITALS: Ht 147.3 cm; Wt 52.2 kg
[~2024-10-05 05:20] MED LIST changes: +CEFD250S3 PO; +POLY17PO4 PO
--- NOTE | 2024-10-05 05:50 | ERN ---
General Chief Complaint: Dehydration Stated Complaint: DEHYDRATION Time Seen by MD: 05:29 History of Present Illness Initial Comments 23-year-old female with hypothyroidism and down syndrome who has been seen in his hospital before because of dehydration, urinary tract infections and constipation. Mother brings the patient in today because she refuses to drink any fluids. Only eat solid food in his not had a bowel movement in several months. Mother states no fevers no chills no other symptoms. Timing/Duration: 1 week Allergies: Coded Allergies: No Known Drug Allergies (Unverified Allergy, Unknown, 11/14/20) Home Meds Active Scripts Polyethylene Glycol 3350 (Miralax) 17 Gram Powd.pack, 17 GM PO DAILY for constipation, #7 PACKET 0 Refills Prov:JEFF BRINK 09/09/24 Cefdinir (Cefdinir) 250 Mg/5 Ml Susp.recon, 6.4 ML PO BID for 7 Days, #90 ML 0 Refills Prov:JEFF BRINK 09/09/24 Psyllium Husk/Sweetleaf (Konsyl Daily Fiber Powder Pkt) 3.5 Gm Powd.pack, 3.5 GM PO BID, #60 PACKET 2 Refills Prov:NELI CAMARENA MD 11/14/20 Magnesium Citrate (Magnesium Citrate) 296 Ml Solution, 296 ML PO TID for constipation, #300 ML 2 Refills Prov:NELI CAMARENA MD 11/14/20 Reported Medications Escitalopram Oxalate (Escitalopram Oxalate) 5 Mg Tablet, 5 MG PO DAILY, TAB 11/14/20 Omeprazole (Omeprazole) 20 Mg Capsule.dr, 20 MG PO DAILY, CAP 11/14/20 Past Medical History Past Medical History: No Pertinent History Medical History Other: DOWN SYNDROME, THYROID, GASTRITIS Past Surgical History: None Surgical History Other: BMT Family History Family History: HTN Social History Social History: Negative, Lives with family Constitutional: (-) chills, (-) diaphoresis, (-) fever, (-) malaise, (-) weakness, (-) other documentation EENTM: (-) eye pain, (-) blurred vision, (-) tearing, (-) double vision, (-) ear pain, (-) ear discharge, (-) nose pain, (-) nose congestion, (-) throat pain, (-) Throat swelling, (-) mouth pain, (-) tooth pain, (-) mouth swelling, (-) other documentation Respiratory: (-) cough, (-) orthopnea, (-) short of breath, (-) stridor, (-) wheezing, (-) other documentation Cardiovascular: (-) chest pain, (-) edema, (-) palpitations, (-) syncope, (-) dyspnea on exertion, (-) other documentation Gastrointestinal/Abdominal: (-) nausea, (-) vomiting, (-) diarrhea, (-) abdominal pain, (-) abdominal distention, (-) constipation, (-) rectal bleeding, (-) dark stool/melena, (-) other documentation Physical Exam General Appearance: (+) no apparent distress General Appearance comment Patient awake looking around appearing disinterested in her surroundings Orientation: (+) alert Eye: bilateral eye normal inspection, bilateral eye PERRL, bilateral eye EOMI Ear, Nose, Throat: (+) hearing grossly normal, (+) normal ENT inspection Neck: (+) normal inspection, (+) supple, (+) full range of motion Respiratory: (+) chest non-tender, (+) lungs clear, (+) well ventilated Heart: (+) regular, (+) no gallop Vascular: (+) no edema Vascular Comment Finished pulses bilaterally Gastrointestinal: (+) soft, (+) non-tender, (+) bowel sound present Results Laboratory and Microbiology Lab and Micro Result Laboratory Tests Test 10/05/24 05:51 10/05/24 06:14 Urine Color YELLOW (YELLOW) Urine Appearance CLOUDY (CLEAR) H Urine pH 5.5 (5.0-8.0) Urine Specific [place] 1.026 (1.001-1.031) Urine Protein NEGATIVE mg/dL (NEGATIVE) Urine Glucose (UA) NEGATIVE mg/dL (NEGATIVE) Urine Ketones NEGATIVE mg/dL (NEGATIVE) Urine Occult Blood NEGATIVE (NEGATIVE) Urine Nitrate NEGATIVE (NEGATIVE) Urine Bilirubin NEGATIVE mg/dL (NEGATIVE) Urine Urobilinogen 2.0 mg/dL (0.2-1.0) H Urine Leukocyte Esterase 250 Judy/uL (NEGATIVE) H Urine RBC 2-5 /HPF (0-1) H Urine WBC 11-25 /HPF (0-1) H Urine Squamous Epithelial Cells MANY /HPF (0-2) Urine Amorphous Crystals (Auto) RARE /LPF (None Seen) Urine Bacteria None /HPF (None Seen) Urine HCG, Qualitative NEGATIVE (NEGATIVE) White Blood Count 6.1 K/uL (4.8-10.8) Red Blood Count 4.01 MIL/uL (4.00-5.50) Hemoglobin 13.0 g/dL (12.0-16.0) Hematocrit 38.3 % (36-48) Mean Corpuscular Volume 95.5 fL (79-99) Mean Corpuscular Hemoglobin 32.4 pg (27.0-33.0) Mean Corpuscular Hemoglobin Concent 33.9 g/dL (32.0-36.0) Red Cell Distribution Width 13.5 % (11.0-15.5) Platelet Count 192 K/uL (130-400) Mean Platelet Volume 10.6 fL (7.5-10.5) H Immature Granulocyte % (Auto) 0.3 % (0-1) Neutrophils (%) (Auto) 75.1 % (40.0-77.0) Lymphocytes (%) (Auto) 19.2 % (21.0-51.0) L Monocytes (%) (Auto) 3.6 % (3.0-13.0) Eosinophils (%) (Auto) 1.3 % (0.0-8.0) Basophils (%) (Auto) 0.5 % (0.0-5.0) Neutrophils # (Auto) 4.6 K/uL (1.8-7.7) Lymphocytes # (Auto) 1.2 K/uL (1.0-4.8) Monocytes # (Auto) 0.2 K/uL (0.1-1.0) Eosinophils # (Auto) 0.08 K/uL (0.00-0.70) Basophils # (Auto) 0.03 K/uL (0.00-0.20) Absolute Immature Granulocyte (auto 0.02 K/uL (0-1) Nucleated Red Blood Cells 0.0 % (0.0-0.19) Sodium Level 141 mmol/L (136-145) Potassium Level 4.5 mmol/L (3.5-5.1) Chloride Level 109 mmol/L (101-111) Carbon Dioxide Level 25 mmol/L (21-32) Blood Urea Nitrogen 9 mg/dL (7-18) Creatinine 0.9 mg/dL (0.5-1.0) Glomerular Filtration Rate Calc 92 mL/min (>90) Random Glucose 84 mg/dL (70-105) Total Calcium 8.7 mg/dL (8.5-10.1) Thyroid Stimulating Hormone (TSH) 5.91 uIU/mL (0.36-3.74) #H Labs Reviewed?: Yes EKG/XRAY/US/CT/MRI X-RAY Comment IMAGING REPORT Signed PATIENT: PATRICIA POTTS MR#: [id number] : 2000 SEX: F AGE: 23 LOCATION: [facility] ORDER 2 STATUS: [facility] ER REPORT#: [id number] SERVICE 9 REASON: constipation ORDERING PHYSICIAN: SUNDEEP KIM MD PROCEDURE: ABD 1VW - ABD 1VW EXAM: CR Abdomen, 2 View. CLINICAL HISTORY: constipation COMPARISON: None provided. FINDINGS: BOWEL: The bowel gas pattern is within normal limits. Prominent fecal material within the cecum, ascending colon and proximal Transverse colon. There are formed fecal elements within the descending colon, sigmoid colon and rectum suggestive for fecal stasis. PERITONEUM/SOFT TISSUES: No free air evident. No pathologic appearing calcification. BONES: No acute osseous abnormality. IMPRESSION: The bowel gas pattern is within normal limits. Findings concerning for fecal stasis/constipation. Clinically correlate. /[place] DICTATED BY: DEBBIE WILSON Jr., MD DATE: 10/05/24804 ELECTRONICALLY SIGNED BY: DEBBIE WILSON Jr., MD DATE: 10/05/24804 [facility] MDM: Differential diagnosis: Constipation, dehydration, elevated TSH, UTI Rationale: Tests considered and ordered secondary to shared decision making include: Previous outside records reviewed: Old ER visits. Risk of complication and/or morbidity or mortality of patient management: None Medications-Per medication reconciliation Need for hospitalization: Patient does meet criteria for hospitalization. Need for emergency major/minor surgery: No Patient is a 23-year-old female coming in complaining of abdominal discomfort. X-ray disclose constipation patient received a Fleet enema and was able to defecate. Patient also has a history hypothyroidism I did explain to mother appropriate follow up PCP he has been. Patient also presenting with a UTI. Antibiotics were given. Patient will be discharged with a diagnosis of chronic constipation with a UTI. ED Course Orders Procedure Category Date Status Time Basic Metabolic Panel LAB 10/05/24 Complete 05:30 Cbc With Differential LAB 10/05/24 Complete 05:30 ,Urine Test LAB 10/05/24 Complete 05:30 Urinalysis Profile LAB 10/05/24 Complete 05:30 Abd 1vw RAD 10/05/24 Resulted 05:30 Thyroid Stimulating LAB 10/05/24 Complete Hormone 05:30 Culture Urine REBA 10/05/24 In Process 06:18 Lactated Ringers PHA 10/05/24 In Process 1000ml (Lactated 06:26 Cefazolin Sodium 1 Gm PHA 10/05/24 Complete Vial (Ancef 1 Gm V 06:26 Potassium Bicarb/Cit PHA 10/05/24 Complete Ac 25meq (K-Lyte Ta 07:30 Fleet Order CPOE 10/05/24 Transmitted 07:32 Current Medications Medications (Trade) Dose Ordered Sig/Chandni Route PRN Reason Start Time Stop Time Status Last Admin Dose Admin Cefazolin Sodium (ANCEF 1 gm vial) 1 gm ONCE STAT IVP 10/05/24 06:26 10/05/24 06:28 DC 10/05/24 06:40 Lactated Ringer's (Lactated Ringers 1000ml) 1,000 ml BOLUS STAT IV 10/05/24 06:26 10/05/24 06:28 DC 10/05/24 06:40 Potassium Bicarbonate (K-Lyte Tablet Eff 25 Meq Tablet.eff) 50 meq ONCE ONCE PO 10/05/24 07:30 10/05/24 07:31 DC Vital Signs Date Time Temp Pulse Resp B/P (MAP) Pulse Ox O2 Delivery O2 Flow Rate FiO2 10/05/24 06:50 63 14 84/46 99 Room Air* 0 21 10/05/24 05:38 98.2 65 14 85/51 99 Room Air* 0 21 10/05/24 05:21 97.9 75 18 94/65 99 Room Air 0 DX & DISP Disposition: Discharge Departure Impression: Primary Impression: Constipation Additional Impressions: Dehydration, UTI (urinary tract infection), Down syndrome Condition: Stable Scripts Cephalexin Monohydrate (Keflex) 500 Mg Cap 1 CAP PO BID for 10 Days, #20 CAP 0 Refills Prov: JUAREZ MARTIN MD 10/05/24 Additional Instructions: FOLLOW-UP WITH PRIMARY CARE PROVIDER IN 1 TO 2 DAYS. TAKE MEDICATIONS DIRECTED HERE IN THE EMERGENCY ROOM. OKAY TO CONTINUE HOME MEDICATIONS UNLESS OTHERWISE DISCUSSED DURING YOUR VISIT IN THE EMERGENCY ROOM TODAY. RETURN TO YOUR NEAREST EMERGENCY ROOM IF SYMPTOMS WORSEN OR IF THERE IS NO IMPROVEMENT. CALL 911 IF YOU NEED IMMEDIATE ASSISTANCE. TAKE TYLENOL [id number] NEEDED AND IF NO CONTRAINDICATIONS ARE PRESENT. INCREASE ORAL HYDRATION. A WOUND CULTURE OR URINE CULTURE WAS ORDERED HERE IN THE EMERGENCY ROOM DEPARTMENT PLEASE FOLLOW-UP WITH PRIMARY CARE PROVIDER AND ADVISE THEM TO GET REPORTS FROM OUR FACILITY. IF YOU HAD ANY ARTHUR WRAP/SPLINTS THAT WERE APPLIED HERE, PLEASE DO NOT REMOVE THEM UNTIL YOU SEE YOUR PRIMARY CARE OR SPECIALTY. Referrals: Referrals: JUN EDGE (PCP) Time of Disposition: 08:34 SUNDEEP KIM MD Oct 05, 2024 05:50 JUAREZ MARTIN MD Oct 05, 2024 08:35
[2024-10-05 06:16] LABS: APPEARANCE,URINE CLOUDY (CLEAR); GLUCOSE, URINE (UA) NEGATIVE (NEGATIVE); LEUKOCYTE ESTERASE ,URINE 250 Leu/uL (NEGATIVE); NITRATE,URINE NEGATIVE (NEGATIVE); OCCULT BLOOD,URINE NEGATIVE (NEGATIVE)
[2024-10-05 06:18] LABS: ADD UA MICROSCOPIC YES
[2024-10-05 06:20] LABS: SQUAMOUS EPITHELIAL CELL,UR MANY /HPF (0-2)
[2024-10-05 06:21] LABS: HCG,QUALITATIVE URINE NEGATIVE (NEGATIVE)
[2024-10-05 06:22] LABS: IMMATURE GRANULOCYTE ABSOLUTE 0.02 K/uL (0-1); NUCLEATED RED BLOOD CELLS 0.0 % (0.0-0.19); PLATELET COUNT (AUTO) 192 K/uL (130-400); RED BLOOD CELL COUNT(AUTO) 4.01 MIL/uL (4.00-5.50); RED CELL DISTRIBUTION WIDTH 13.5 % (11.0-15.5); WHITE BLOOD COUNT (AUTO) 6.1 K/uL (4.8-10.8)
[2024-10-05] MEDS: LACTATED RINGERS 1000ML IV STA (06:40)
[2024-10-05 06:46] LABS: CREATININE 0.9 mg/dL (0.5-1.0); GLOMERULAR FILTR. RATE CALC 92.0 mL/min (>90); GLUCOSE,RANDOM 84.0 mg/dL (70-105); SODIUM SERUM 141.0 mmol/L (136-145); UREA NITROGEN, BLOOD 9.0 mg/dL (7-18)
--- NOTE | 2024-10-05 07:06 | HMCIMG ---
EXAM: CR Abdomen, 2 View. CLINICAL HISTORY: constipation COMPARISON: None provided. FINDINGS: BOWEL: The bowel gas pattern is within normal limits. Prominent fecal material within the cecum, ascending colon and proximal Transverse colon. There are formed fecal elements within the descending colon, sigmoid colon and rectum suggestive for fecal stasis. PERITONEUM/SOFT TISSUES: No free air evident. No pathologic appearing calcification. BONES: No acute osseous abnormality. IMPRESSION: The bowel gas pattern is within normal limits. Findings concerning for fecal stasis/constipation. Clinically correlate. /[place]
--- NOTE | 2024-10-05 07:30 | NUR ---
POTASSIUM 4.5,POTASSIUM BICARB EFFERVESCENT NOT GIVEN
--- NOTE | 2024-10-05 07:45 | NUR ---
FLEET ENEMA ADMINISTERED
[2024-10-05] MEDS ORDERED: CEPH500B PO (08:35)
[2024-10-05 10:22] VITALS: BP 86/54; PULSE 61; RESP 14; TEMP 98.2; O2SAT 98
== END 2024-10-05 10:25 | disposition home or self-care (01) ==
LOC: EDH 05:20
DX: K59.00 Constipation, unspecified (principal); E03.9 Hypothyroidism, unspecified; E86.0 Dehydration; N39.0 Urinary tract infection, site not specified; Z79.899 Other long term (current) drug therapy; Z94.81 Bone marrow transplant status
CPT/HCPCS: 99285; 96365; 84443; 80048; 85025; 87086; 81001; 81025; 36415; 74018; J7120; J0690